=== PATIENT | female | born 1940 | race Caucasian/White ===

== ENCOUNTER → 2016-10-11 | Outpatient (CLI) | payer OTHER | END | disposition home or self-care (01) | LOC: CFH 08:26 | PROVIDERS: ATTEND Internal Medicine Cardiovascular Disease | DX: R94.31 Abnormal electrocardiogram [ECG] [EKG] (principal); I10 Essential (primary) hypertension | CPT/HCPCS: 78452; 93017; A9502 ==

== ENCOUNTER → 2016-10-12 | Outpatient (CLI) | payer OTHER | END | disposition home or self-care (01) | LOC: CVU 08:23 | PROVIDERS: ATTEND Internal Medicine Cardiovascular Disease | DX: I51.7 Cardiomegaly (principal); I08.3 Combined rheumatic disorders of mitral, aortic and tricuspid valves; I37.1 Nonrheumatic pulmonary valve insufficiency; I65.23 Occlusion and stenosis of bilateral carotid arteries; I10 Essential (primary) hypertension | CPT/HCPCS: 93306; 93880 ==

== ENCOUNTER 2017-04-07 09:51 | Emergency (ER) | payer OTHER ==
[~2017-04-07] VITALS: Ht 160 cm; Wt 68.5 kg
[2017-04-07] MEDS ORDERED: SODIUM CHLORIDE 0.9% 1,000 ML IV ONE (10:20)
[2017-04-07] MEDS ORDERED: ASPIRIN 81 MG TABLET CHEW PO ONE (10:30)
[2017-04-07] MEDS ORDERED: SODIUM CHLORIDE 0.9% 1,000ML IVBOLUS ONE (10:30)
[2017-04-07] MEDS ORDERED: SODIUM CHLORIDE FLUSH 10ML SYR IVF ONE (10:30)
[2017-04-07 10:46] LABS: HEMOGLOBIN 13.6 g/dL (11.7-16.4); WHITE BLOOD COUNT 8.3 x10^3/uL (3.4-10)
[2017-04-07] MEDS ORDERED: ASPIRIN 81 MG TABLET CHEW ONE (11:07)
[2017-04-07 11:35] LABS: BLOOD UREA NITROGEN 20 mg/dL (7-18)
[2017-04-07 11:36] LABS: IS PT STATUS REG ER OR PRE ER? YES
[2017-04-07] MEDS ORDERED: LISI40TA PO (11:45)
[2017-04-07] MEDS ORDERED: HYDR25TA6 PO (11:45)
[2017-04-07] MEDS ORDERED: ASPI-496 PO (11:45)
[2017-04-07] MEDS ORDERED: ATOR20TA9 PO (11:45)
[2017-04-07] MEDS ORDERED: LEVO75TA5 PO (11:45)
[2017-04-07] MEDS ORDERED: AMLO10TA2 PO (11:45)
[2017-04-07 13:10] VITALS: BP 116/60
[2017-04-07] MEDS ORDERED: APIXABAN 5 MG TABLET PO ONE (13:30)
== END 2017-04-07 14:01 | disposition home or self-care (01) ==
LOC: ED 11:25
DX: I48.0 Paroxysmal atrial fibrillation (principal); I10 Essential (primary) hypertension; E03.9 Hypothyroidism, unspecified
CPT/HCPCS: 36415; 71010; 80048; 82040; 83735; 83880; 84484; 85025; 85379; 85610; 85730; 93005; 96360; 99285; J7030

== ENCOUNTER 2018-07-30 12:02 | Outpatient (CLI) | payer MEDICARE, OTHER ==
[~2018-07-30 12:02] MED LIST: AMLO10TA8 PO; ASPI-496 PO; ATOR20TA37 PO; HYDR25TA6 PO; LEVO75TA5 PO; LISI40TA PO
== END 2018-07-30 23:59 | disposition home or self-care (01) ==
LOC: CVU 12:02
PROVIDERS: ATTEND Internal Medicine Cardiovascular Disease
DX: I08.3 Combined rheumatic disorders of mitral, aortic and tricuspid valves (principal); I65.23 Occlusion and stenosis of bilateral carotid arteries
CPT/HCPCS: 93306; 93880

== ENCOUNTER 2019-09-21 20:34 | Observation (INO) | payer MEDICARE ==
[~2019-09-21] VITALS: Ht 161.3 cm; Wt 68.1 kg
[~2019-09-21 20:34] MED LIST changes: +APIX5TAB PO; +FURO40TA6 PO; +METO-93 PO; +METO25TA35 PO; +POTA20TA6 PO
--- NOTE | 2019-09-21 21:38 | NUR ---
PT CAME IN CO OF SOB WHEN SHE WAS LAYING DOWN TO GO TO SLEEP. "I FELT LIKE I COULDNT BREATH AT ALL". PT IS CURRENTLY 97% ON RM AIR. PT ALSO STATED THAT SHE WAS TREATED A WEEK AGO FOR LOW POTASSIUM. IS BEDSIDE. PT IS HOOKED UP TO FULL STACK [employer]. BLANKET PROVIDED.
[2019-09-21 22:07] LABS: BASOPHILS # (AUTO) 0.04 x10^3/uL (0-0.1); BASOPHILS % (AUTO) 1 % (0-1); EOSINOPHILS # (AUTO) 0.16 x10^3/uL (0-0.4); EOSINOPHILS % (AUTO) 2 % (1-7); LYMPHOCYTES # (AUTO) 2.27 x10^3/uL (1-3.4); LYMPHOCYTES % (AUTO) 35 % (22-44); MD NO; MEAN CORPUSCULAR HEMOGLOBIN 28.7 pg (27.0-34.8); MEAN CORPUSCULAR HGB CONC 33.4 g/dL (32.4-35.8); MEAN PLATELET VOLUME 9.6 fL (7.4-10.4); MONOCYTES # (AUTO) 0.74 x10^3/uL (0.2-0.8); MONOCYTES % (AUTO) 11 % (2-9); NEUTROPHILS # (AUTO) 3.32 x10^3/uL (1.8-6.8); NEUTROPHILS % (AUTO) 51 % (42-75); PLATELET COUNT 334 x10^3/uL (130-400); RED CELL DISTRIBUTION WIDTH 14.1 % (9.6-15.2)
[2019-09-21 22:19] LABS: ALANINE AMINOTRANSFERASE 22 U/L (12-78); ALBUMIN 3.6 g/dL (3.4-5.0); ANION GAP 8 mmol/L (5-15); CALCIUM 8.6 mg/dL (8.5-10.1); CHLORIDE 108 mmol/L (98-107); CREATININE 0.85 mg/dL (0.55-1.02)
[2019-09-21 22:23] LABS: ALKALINE PHOSPHATASE 69 U/L (45-117); BILIRUBIN,TOTAL 0.3 mg/dL (0.2-1.0); TROPONIN I < 0.015 ng/mL (0.000-0.045)
--- NOTE | 2019-09-21 23:11 | NUR ---
PT IS RESTING IN [facility]. PT TO BE ADMITTED. VSS. NAD. NO NEEDS AT THIS TIME
[2019-09-22 00:26] VITALS: BP 209/74
[2019-09-22] MEDS ORDERED: NITROGLYCERIN 0.4 MG BOTTLE (25 TABS) SL PRN (00:30)
[2019-09-22] MEDS ORDERED: DOCUSATE 100 MG CAPSULE PO PRN (00:30)
[2019-09-22] MEDS ORDERED: TEMAZEPAM 15 MG CAPSULE PO PRN (00:30)
[2019-09-22] MEDS ORDERED: hydrALAzine 20 MG/ML, 1ML IVPush PRN (00:30)
[2019-09-22] MEDS ORDERED: LIDODERM 5% PATCH TD PRN (00:30)
[2019-09-22 04:28] LABS: TROPONIN I < 0.015 ng/mL (0.000-0.045)
[2019-09-22] MEDS ORDERED: OMNIPAQUE 350 MG/ML, 100ML BOTTLE ONE (05:51)
[2019-09-22 06:48] VITALS: BP 125/60
[2019-09-22] MEDS ORDERED: REGADENOSON 0.4 MG/5 ML SYRINGE ONE (08:42)
[2019-09-22] MEDS ORDERED: APIXABAN 5 MG TABLET PO SCH (09:00)
[2019-09-22] MEDS: FUROSEMIDE 40 MG TABLET PO SCH (10:23)
[2019-09-22] MEDS: POTASSIUM CHLORIDE 20 MEQ TAB.ER.PRT PO SCH (10:23)
[2019-09-22] MEDS: LISINOPRIL 40 MG TABLET PO SCH (10:23)
[2019-09-22] MEDS: LEVOTHYROXINE 75 MCG TABLET PO SCH (10:24)
[2019-09-22 10:45] LABS: TROPONIN I < 0.015 ng/mL (0.000-0.045)
[2019-09-22 12:38] VITALS: BP 128/70
[2019-09-22] MEDS: METOPROLOL SUCCINATE 25 MG TAB.ER.24H PO SCH (14:05)
[2019-09-22 21:00] VITALS: BP 134/68
[2019-09-22] MEDS ORDERED: ATORVASTATIN 20 MG TABLET PO SCH (21:00)
[2019-09-22] MEDS: ATORVASTATIN 40 MG TABLET PO SCH (21:06)
[2019-09-23 05:09] VITALS: BP 143/75
[2019-09-23] MEDS: METOPROLOL SUCCINATE 25 MG TAB.ER.24H PO SCH (05:14)
[2019-09-23] MEDS: ASPIRIN 81 MG TABLET EC PO SCH (05:14)
[2019-09-23 06:19] LABS: BASOPHILS # (AUTO) 0.03 x10^3/uL (0-0.1); BASOPHILS % (AUTO) 1 % (0-1); CHLORIDE 107 mmol/L (98-107); EOSINOPHILS # (AUTO) 0.13 x10^3/uL (0-0.4); EOSINOPHILS % (AUTO) 2 % (1-7); LYMPHOCYTES # (AUTO) 2.45 x10^3/uL (1-3.4); LYMPHOCYTES % (AUTO) 35 % (22-44); MD NO; MEAN CORPUSCULAR VOLUME 85.4 fL (80-100); MEAN PLATELET VOLUME 9.7 fL (7.4-10.4); MONOCYTES # (AUTO) 0.79 x10^3/uL (0.2-0.8); MONOCYTES % (AUTO) 11 % (2-9); NEUTROPHILS # (AUTO) 3.58 x10^3/uL (1.8-6.8); NEUTROPHILS % (AUTO) 51 % (42-75); PLATELET COUNT 354 x10^3/uL (130-400); RED BLOOD COUNT 4.71 x10^6/uL (3.82-5.3); RED CELL DISTRIBUTION WIDTH 14.3 % (9.6-15.2)
[2019-09-23 06:34] LABS: ANION GAP 9 mmol/L (5-15); CALCIUM 8.8 mg/dL (8.5-10.1); CHOL/HDL RATIO 2.3; CHOLESTEROL, TOTAL 113 mg/dL (140-239); CREATININE 0.86 mg/dL (0.55-1.02); HDL CHOL % 43 % (28-40); HDL CHOLESTEROL (DIRECT) 49 mg/dL (40-60); LDL CHOLESTEROL,CALCULATED 42 mg/dL (54-169); LDL/HDL RATIO 0.9 (0.5-3.0); TRIGLYCERIDES 110 mg/dL (50-200); VLDL CHOLESTEROL 22 mg/dL (0-25)
[2019-09-23 07:16] VITALS: BP 111/66
[2019-09-23] MEDS: LEVOTHYROXINE 75 MCG TABLET PO SCH (07:41)
[2019-09-23] MEDS: FUROSEMIDE 40 MG TABLET PO SCH (07:41)
[2019-09-23] MEDS: POTASSIUM CHLORIDE 20 MEQ TAB.ER.PRT PO SCH (07:41)
[2019-09-23] MEDS: LISINOPRIL 40 MG TABLET PO SCH (07:41)
[2019-09-23] MEDS ORDERED: SODIUM CHLORIDE 0.9% 1,000 ML IV SCH (10:00)
[2019-09-23 13:11] VITALS: BP 122/60
[2019-09-23 19:02] VITALS: BP 114/62
[2019-09-23] MEDS: ATORVASTATIN 40 MG TABLET PO SCH (20:04)
[2019-09-24 01:55] VITALS: BP 120/68
[2019-09-24 05:49] LABS: BASOPHILS # (AUTO) 0.06 x10^3/uL (0-0.1); BASOPHILS % (AUTO) 1 % (0-1); EOSINOPHILS # (AUTO) 0.16 x10^3/uL (0-0.4); EOSINOPHILS % (AUTO) 2 % (1-7); LYMPHOCYTES # (AUTO) 2.36 x10^3/uL (1-3.4); LYMPHOCYTES % (AUTO) 32 % (22-44); MD NO; MEAN CORPUSCULAR HEMOGLOBIN 28.8 pg (27.0-34.8); MEAN CORPUSCULAR HGB CONC 33.4 g/dL (32.4-35.8); MEAN PLATELET VOLUME 9.3 fL (7.4-10.4); MONOCYTES # (AUTO) 0.73 x10^3/uL (0.2-0.8); MONOCYTES % (AUTO) 10 % (2-9); NEUTROPHILS # (AUTO) 4.18 x10^3/uL (1.8-6.8); NEUTROPHILS % (AUTO) 56 % (42-75); PLATELET COUNT 323 x10^3/uL (130-400); RED BLOOD COUNT 4.63 x10^6/uL (3.82-5.3); RED CELL DISTRIBUTION WIDTH 14.3 % (9.6-15.2)
[2019-09-24 05:56] LABS: ANION GAP 9 mmol/L (5-15); CALCIUM 8.7 mg/dL (8.5-10.1); CHLORIDE 107 mmol/L (98-107); CREATININE 0.84 mg/dL (0.55-1.02)
[2019-09-24] MEDS: ASPIRIN 81 MG TABLET EC PO SCH (06:03)
[2019-09-24] MEDS: METOPROLOL SUCCINATE 25 MG TAB.ER.24H PO SCH (06:03)
[2019-09-24] MEDS: SODIUM CHLORIDE 0.9% 1,000 ML IV SCH ×4 (07:00→20:11)
[2019-09-24 07:20] VITALS: BP 119/64
[2019-09-24] MEDS ORDERED: MIDAZOLAM 1 MG/ML, 5ML ONE (07:49)
[2019-09-24] MEDS ORDERED: FENTANYL PF 100 MCG/2ML ONE (07:49)
[2019-09-24] MEDS ORDERED: VERAPAMIL 2.5 MG/ML, 2ML ONE (07:50)
[2019-09-24] MEDS ORDERED: LIDOCAINE-MPF 1%, 5ML ONE (07:50)
[2019-09-24] MEDS ORDERED: HEPARIN 1,000 UNITS/ML, 10ML ONE (07:50)
[2019-09-24] MEDS ORDERED: BIVALIRUDIN 250 MG ONE (07:50)
[2019-09-24] MEDS ORDERED: NITROGLYCERIN 5 MG/ML, 10ML ONE (07:54)
[2019-09-24] MEDS ORDERED: CLOPIDOGREL 300 MG TABLET ONE (09:18)
[2019-09-24] MEDS ORDERED: BIVALIRUDIN 250 MG in SODIUM CHLORIDE 0.9% 50 ML IV SCH (10:00)
[2019-09-24] MEDS: POTASSIUM CHLORIDE 20 MEQ TAB.ER.PRT PO SCH (10:34)
[2019-09-24] MEDS: FUROSEMIDE 40 MG TABLET PO SCH (10:34)
[2019-09-24] MEDS: LEVOTHYROXINE 75 MCG TABLET PO SCH (10:35)
[2019-09-24] MEDS: LISINOPRIL 40 MG TABLET PO SCH (10:35)
[2019-09-24] MEDS: ACETAMINOPHEN 325 MG TABLET PO PRN ×2 (11:03→17:02)
[2019-09-24 12:27] VITALS: BP 124/67
[2019-09-24 15:57] LABS: TROPONIN I 0.116 ng/mL (0.000-0.045)
[2019-09-24 19:51] VITALS: BP 139/65
[2019-09-24] MEDS: ATORVASTATIN 40 MG TABLET PO SCH (20:41)
[2019-09-25] MEDS: SODIUM CHLORIDE 0.9% 1,000 ML IV SCH ×3 (00:05→11:00)
[2019-09-25 00:32] VITALS: BP 134/66
[2019-09-25 05:24] LABS: ANION GAP 6 mmol/L (5-15); CALCIUM 8.6 mg/dL (8.5-10.1); CHLORIDE 110 mmol/L (98-107); CREATININE 0.76 mg/dL (0.55-1.02)
[2019-09-25] MEDS: ASPIRIN 81 MG TABLET EC PO SCH (06:06)
[2019-09-25] MEDS: METOPROLOL SUCCINATE 25 MG TAB.ER.24H PO SCH (06:06)
[2019-09-25 08:17] VITALS: BP 116/66
[2019-09-25] MEDS: LISINOPRIL 40 MG TABLET PO SCH (08:19)
[2019-09-25] MEDS: FUROSEMIDE 40 MG TABLET PO SCH (08:19)
[2019-09-25] MEDS: POTASSIUM CHLORIDE 20 MEQ TAB.ER.PRT PO SCH (08:19)
[2019-09-25] MEDS: LEVOTHYROXINE 75 MCG TABLET PO SCH (08:19)
[2019-09-25] MEDS ORDERED: CLOP75TA PO (10:22)
[2019-09-25] MEDS ORDERED: CLOPIDOGREL 75 MG TABLET PO SCH (11:00)
== END 2019-09-25 12:17 | disposition home or self-care (01) ==
LOC: ED 23:15 → 5SO 09-22 00:24 → ED 09-22 00:24 → INTOOBSV 09-22 00:46 → 5SO 09-22 00:46 → INTOOBSV 09-24 15:17 → OBSVTOIN 09-24 15:17 → DCLOUNGE 09-25 12:07
PROVIDERS: ADMIT Family Medicine; ATTEND Family Medicine
DX: I21.4 Non-ST elevation (NSTEMI) myocardial infarction (principal); I48.0 Paroxysmal atrial fibrillation; R06.00 Dyspnea, unspecified; D68.69 Other thrombophilia; I11.0 Hypertensive heart disease with heart failure; I50.33 Acute on chronic diastolic (congestive) heart failure; E78.5 Hyperlipidemia, unspecified; I08.3 Combined rheumatic disorders of mitral, aortic and tricuspid valves; I27.20 Pulmonary hypertension, unspecified; R94.31 Abnormal electrocardiogram [ECG] [EKG]; E89.0 Postprocedural hypothyroidism; I25.10 Atherosclerotic heart disease of native coronary artery without angina pectoris; Z87.891 Personal history of nicotine dependence; Z88.0 Allergy status to penicillin; Z79.899 Other long term (current) drug therapy; Z79.01 Long term (current) use of anticoagulants; Z87.442 Personal history of urinary calculi
CPT/HCPCS: 36415; 71045; 71275; 78452; 80048; 80053; 80061; 83735; 83880; 84100; 84484; 85025; 85379; 93005; 93017; 93458; 96374; 99156; 99157; 99285; A9502; C1725; C1769; C1874; C1887; C1894; C9600; G0378; J0360; J0583; J1644; J2250; J2785; J3010; J7030; Q9967

== ENCOUNTER 2019-09-25 20:49 | Inpatient (IN) | payer MEDICARE ==
[~2019-09-25] VITALS: Ht 160 cm; Wt 63.5 kg
[~2019-09-25 20:49] MED LIST changes: +CLOP75TA PO
[2019-09-25] MEDS ORDERED: DILTIAZEM 125 MG in SODIUM CHLORIDE 0.9% 100 ML IV SCH ×2 (21:20→23:00)
[2019-09-25] MEDS ORDERED: SODIUM CHLORIDE FLUSH 10ML SYR IVF ONE (21:30)
[2019-09-25] MEDS ORDERED: DILTIAZEM 5 MG/ML, 5ML IV ONE (21:30)
[2019-09-25] MEDS ORDERED: DILTIAZEM 5 MG/ML, 5ML ONE (21:35)
--- NOTE | 2019-09-25 21:43 | NUR ---
CHAYO RN: PT PRESENTS WITH C/O INCREASED SOB. PT WAS D/C EARLIER TODAY S/P CARDIAC STENTS X3 PLACED YESTERDAY. PT WITH HX OF AFIB. PT RAPID AFIB 150S ON MONITOR. MILDLY RAPID RESP--ABLE TO SPEAK SENTENCES WITH NO DIFFICULTY. IV ACCESS OBTAINED AND PT MEDICATED PER SEP WITH CARDIZEM. AWAITING DRIP FROM PHARMACY. PT AND SPOUSE AWARE OF POC. CALL LIGHT IN REACH.
[2019-09-25 21:48] LABS: BASOPHILS # (AUTO) 0.05 x10^3/uL (0-0.1); BASOPHILS % (AUTO) 1 % (0-1); EOSINOPHILS # (AUTO) 0.08 x10^3/uL (0-0.4); EOSINOPHILS % (AUTO) 1 % (1-7); LYMPHOCYTES # (AUTO) 2.24 x10^3/uL (1-3.4); LYMPHOCYTES % (AUTO) 20 % (22-44); MD NO; MEAN CORPUSCULAR HEMOGLOBIN 28.9 pg (27.0-34.8); MEAN CORPUSCULAR HGB CONC 33.7 g/dL (32.4-35.8); MEAN CORPUSCULAR VOLUME 85.8 fL (80-100); MEAN PLATELET VOLUME 9.4 fL (7.4-10.4); MONOCYTES # (AUTO) 0.95 x10^3/uL (0.2-0.8); MONOCYTES % (AUTO) 9 % (2-9); NEUTROPHILS # (AUTO) 7.65 x10^3/uL (1.8-6.8); NEUTROPHILS % (AUTO) 70 % (42-75); PLATELET COUNT 369 x10^3/uL (130-400); RED BLOOD COUNT 4.83 x10^6/uL (3.82-5.3)
[2019-09-25 21:56] LABS: ALANINE AMINOTRANSFERASE 37 U/L (12-78); ALBUMIN 3.6 g/dL (3.4-5.0); ANION GAP 11 mmol/L (5-15); CALCIUM 8.9 mg/dL (8.5-10.1); CHLORIDE 107 mmol/L (98-107); CREATININE 1.23 mg/dL (0.55-1.02)
[2019-09-25 22:01] LABS: ALKALINE PHOSPHATASE 104 U/L (45-117); BILIRUBIN,TOTAL 0.5 mg/dL (0.2-1.0); TOTAL PROTEIN 8.2 g/dL (6.4-8.2)
[2019-09-25 22:03] LABS: TROPONIN I 0.221 ng/mL (0.000-0.045)
--- NOTE | 2019-09-25 22:05 | NUR ---
REPORT TO PRIMARY RN, CHARISSE.
[2019-09-25] MEDS ORDERED: ASPIRIN 325 MG TABLET PO ONE (22:30)
--- NOTE | 2019-09-25 22:37 | NUR ---
ADMITTING PROVIDER IN ROOM.
[2019-09-25] MEDS ORDERED: morphine SULFATE 10 MG/ML, 1ML IVPush PRN (23:00)
[2019-09-25] MEDS ORDERED: ACETAMINOPHEN 325 MG TABLET PO PRN (23:00)
[2019-09-25] MEDS ORDERED: ONDANSETRON 2MG/ML, 2ML IVPush PRN (23:00)
[2019-09-25 23:10] VITALS: BP 115/73
--- NOTE | 2019-09-25 23:23 | NUR ---
REPORT GIVEN TO DEDE MUIR.
[2019-09-26 01:32] LABS: TROPONIN I 0.222 ng/mL (0.000-0.045)
[2019-09-26 02:06] VITALS: BP 95/56
[2019-09-26 05:38] LABS: BASOPHILS # (AUTO) 0.03 x10^3/uL (0-0.1); BASOPHILS % (AUTO) 0 % (0-1); EOSINOPHILS # (AUTO) 0.14 x10^3/uL (0-0.4); EOSINOPHILS % (AUTO) 2 % (1-7); LYMPHOCYTES # (AUTO) 2.35 x10^3/uL (1-3.4); LYMPHOCYTES % (AUTO) 31 % (22-44); MD NO; MEAN CORPUSCULAR HEMOGLOBIN 28.8 pg (27.0-34.8); MEAN CORPUSCULAR HGB CONC 33.2 g/dL (32.4-35.8); MEAN CORPUSCULAR VOLUME 86.6 fL (80-100); MONOCYTES # (AUTO) 0.69 x10^3/uL (0.2-0.8); MONOCYTES % (AUTO) 9 % (2-9); NEUTROPHILS # (AUTO) 4.28 x10^3/uL (1.8-6.8); NEUTROPHILS % (AUTO) 57 % (42-75); PLATELET COUNT 311 x10^3/uL (130-400); RED BLOOD COUNT 4.77 x10^6/uL (3.82-5.3); RED CELL DISTRIBUTION WIDTH 13.9 % (9.6-15.2)
[2019-09-26 05:40] LABS: ANION GAP 8 mmol/L (5-15); CALCIUM 8.4 mg/dL (8.5-10.1); CHLORIDE 109 mmol/L (98-107)
[2019-09-26 05:47] LABS: CREATININE 1.03 mg/dL (0.55-1.02); TROPONIN I 0.241 ng/mL (0.000-0.045)
[2019-09-26] MEDS: METOPROLOL SUCCINATE 50 MG TAB.ER.24H PO SCH (06:43)
[2019-09-26 08:00] VITALS: BP 107/51
[2019-09-26] MEDS: POTASSIUM CHLORIDE 20 MEQ TAB.ER.PRT PO SCH (09:24)
[2019-09-26] MEDS: CLOPIDOGREL 75 MG TABLET PO SCH (09:24)
[2019-09-26] MEDS: LEVOTHYROXINE 75 MCG TABLET PO SCH (09:24)
[2019-09-26] MEDS: FUROSEMIDE 40 MG TABLET PO SCH (09:24)
[2019-09-26] MEDS: APIXABAN 5 MG TABLET PO SCH ×2 (09:25→21:55)
[2019-09-26] MEDS: LISINOPRIL 40 MG TABLET PO SCH (09:25)
[2019-09-26 14:45] VITALS: BP 119/56
[2019-09-26] MEDS ORDERED: ATORVASTATIN 20 MG TABLET PO SCH (21:00)
[2019-09-26 21:55] VITALS: BP 129/63
[2019-09-27 01:17] VITALS: BP 100/61
[2019-09-27] MEDS: METOPROLOL SUCCINATE 50 MG TAB.ER.24H PO SCH (05:25)
[2019-09-27 06:07] LABS: CHLORIDE 108 mmol/L (98-107)
[2019-09-27 06:14] LABS: ANION GAP 7 mmol/L (5-15); CALCIUM 8.9 mg/dL (8.5-10.1); CREATININE 0.99 mg/dL (0.55-1.02)
[2019-09-27 06:59] VITALS: BP 135/63
[2019-09-27] MEDS: CLOPIDOGREL 75 MG TABLET PO SCH (07:53)
[2019-09-27] MEDS: APIXABAN 5 MG TABLET PO SCH (07:53)
[2019-09-27] MEDS: POTASSIUM CHLORIDE 20 MEQ TAB.ER.PRT PO SCH (07:53)
[2019-09-27] MEDS: LISINOPRIL 40 MG TABLET PO SCH (07:53)
[2019-09-27] MEDS: FUROSEMIDE 40 MG TABLET PO SCH (07:54)
[2019-09-27] MEDS: LEVOTHYROXINE 75 MCG TABLET PO SCH (07:54)
== END 2019-09-27 08:06 | disposition home or self-care (01) | DRG 281 ==
LOC: ED 22:26 → 5SO 23:51
PROVIDERS: ATTEND Internal Medicine
DX: I48.91 Unspecified atrial fibrillation (principal); I21.4 Non-ST elevation (NSTEMI) myocardial infarction; I50.32 Chronic diastolic (congestive) heart failure; I35.0 Nonrheumatic aortic (valve) stenosis; E03.9 Hypothyroidism, unspecified; E78.5 Hyperlipidemia, unspecified; I11.0 Hypertensive heart disease with heart failure; I27.20 Pulmonary hypertension, unspecified; Z79.01 Long term (current) use of anticoagulants; Z95.5 Presence of coronary angioplasty implant and graft; Z72.89 Other problems related to lifestyle; Z88.0 Allergy status to penicillin
CPT/HCPCS: 36415; 71045; 71275; 78452; 80048; 80053; 80061; 83735; 83880; 84100; 84484; 85025; 85379; 93005; 93017; 93458; 96374; 99156; 99157; C1769; C1894; C9600; G0378; J0583; J1644; J2250; J2785; J3010; Q9967; A9502; C1725; C1874; C1887; J0360; J7030

== ENCOUNTER 2019-10-31 16:37 | Observation (INO) | payer MEDICARE ==
[~2019-10-31] VITALS: Ht 160 cm; Wt 66.0 kg
--- NOTE | 2019-10-31 16:58 | NUR ---
PT CAME IN CO OF "MY AFIB IS ACTING UP". PT SAYS SHE DOES NOT KNOW WHEN IT STARTED BUT WAS FEELING WEAK AROUND 1600 HX OF AFIB. TAKES NA PT IS CONNECTED TO LONE LEAD [facility] [facility]ULSE [facility]. IS BEDSIDE. BLANKET PROVIDED
[2019-10-31] MEDS ORDERED: PROPOFOL 10 MG/ML, 20ML IVPush ONE (17:30)
[2019-10-31] MEDS ORDERED: SODIUM CHLORIDE FLUSH 10ML SYR IVF ONE (17:30)
[2019-10-31] MEDS ORDERED: PROPOFOL 10 MG/ML, 20ML ONE (17:37)
--- NOTE | 2019-10-31 17:48 | NUR ---
PT SET UP FOR ELECTROCARDIO VERSION. CONSENT HAS BEEN SIGNED. PT EDUCATED ON PROCEDURE. AWAITING LAB RESULTS BEFORE PROCEDURE BEGINS
[2019-10-31 17:50] LABS: ALBUMIN 3.8 g/dL (3.4-5.0); ANION GAP 5 mmol/L (5-15); CHLORIDE 110 mmol/L (98-107); CREATININE 1.05 mg/dL (0.55-1.02)
[2019-10-31 18:29] LABS: BASOPHILS # (AUTO) 0.03 x10^3/uL (0-0.1); BASOPHILS % (AUTO) 1 % (0-1); EOSINOPHILS % (AUTO) 2 % (1-7); LYMPHOCYTES # (AUTO) 1.74 x10^3/uL (1-3.4); LYMPHOCYTES % (AUTO) 31 % (22-44); MD NO; MEAN CORPUSCULAR HEMOGLOBIN 29.2 pg (27.0-34.8); MEAN CORPUSCULAR HGB CONC 34.1 g/dL (32.4-35.8); MEAN CORPUSCULAR VOLUME 85.7 fL (80-100); MEAN PLATELET VOLUME 8.6 fL (7.4-10.4); MONOCYTES # (AUTO) 0.92 x10^3/uL (0.2-0.8); MONOCYTES % (AUTO) 16 % (2-9); NEUTROPHILS # (AUTO) 2.91 x10^3/uL (1.8-6.8); NEUTROPHILS % (AUTO) 51 % (42-75); PLATELET COUNT 322 x10^3/uL (130-400); RED BLOOD COUNT 4.36 x10^6/uL (3.82-5.3)
[2019-10-31] MEDS ORDERED: DILTIAZEM 5 MG/ML, 5ML ONE ×2 (18:46→19:36)
--- NOTE | 2019-10-31 18:59 | NUR ---
CAHYO RN: ADMITTING MD MEYERS AT BEDSIDE FOR EVAL. PER DR. MEYERS - PT IS TO REICEVE 10 MG BOLUSES OF CARDIZEM 30 MINUTES APART X 3 PRIOR TO STARTING CARDIZEM DRIP. PT CURRENTLY RESTING ON GURNEY. NAD NOTED. SKIN PWD. RESP EVEN AND UNLABORED. PT ON CONT BP, CARDIAC AND O2 MONITORS. CALL LIGHT WITHIN REACH. WILL CONT TO [facility] PT.
[2019-10-31] MEDS ORDERED: DOCUSATE 100 MG CAPSULE PO PRN (19:00)
[2019-10-31] MEDS ORDERED: DILTIAZEM 5 MG/ML, 5ML IVPush PRN (19:00)
[2019-10-31] MEDS ORDERED: DILTIAZEM 5 MG/ML, 5ML IV ONE (19:00)
[2019-10-31] MEDS ORDERED: ACETAMINOPHEN 325 MG TABLET PO PRN (19:00)
[2019-10-31] MEDS ORDERED: ONDANSETRON ODT 4 MG PO PRN (19:00)
[2019-10-31] MEDS: DILTIAZEM 125 MG in SODIUM CHLORIDE 0.9% 100 ML IV SCH (20:03)
[2019-10-31 20:09] VITALS: BP 142/80
[2019-10-31] MEDS ORDERED: ATORVASTATIN 20 MG TABLET PO SCH (21:00)
[2019-10-31] MEDS: APIXABAN 5 MG TABLET PO SCH (21:00)
[2019-11-01 01:14] VITALS: BP 111/76
[2019-11-01 02:48] VITALS: BP 102/59
[2019-11-01] MEDS ORDERED: LEVOTHYROXINE 75 MCG TABLET PO SCH (06:00)
[2019-11-01] MEDS: DILTIAZEM 125 MG in SODIUM CHLORIDE 0.9% 100 ML IV SCH (06:37)
[2019-11-01 06:50] VITALS: BP 122/64
[2019-11-01] MEDS: APIXABAN 5 MG TABLET PO SCH (08:25)
[2019-11-01] MEDS ORDERED: METOPROLOL SUCCINATE 50 MG TAB.ER.24H PO SCH (08:30)
[2019-11-01] MEDS ORDERED: POTASSIUM CHLORIDE 20 MEQ TAB.ER.PRT PO SCH (09:00)
[2019-11-01] MEDS ORDERED: LISINOPRIL 40 MG TABLET PO SCH (09:00)
[2019-11-01] MEDS ORDERED: FUROSEMIDE 40 MG TABLET PO SCH (09:00)
[2019-11-01] MEDS ORDERED: CLOPIDOGREL 75 MG TABLET PO SCH (09:00)
[2019-11-01] MEDS ORDERED: METO-93 PO (12:08)
== END 2019-11-01 13:40 | disposition home or self-care (01) ==
LOC: ED 17:15 → INTOOBSV 18:39 → EDIP 18:39 → 5SO 19:56
PROVIDERS: ADMIT Family Medicine; ATTEND Family Medicine
DX: I48.0 Paroxysmal atrial fibrillation (principal); I11.0 Hypertensive heart disease with heart failure; I50.30 Unspecified diastolic (congestive) heart failure; I25.2 Old myocardial infarction; E78.5 Hyperlipidemia, unspecified; E03.9 Hypothyroidism, unspecified; I27.20 Pulmonary hypertension, unspecified; Z79.01 Long term (current) use of anticoagulants; Z87.891 Personal history of nicotine dependence; Z95.5 Presence of coronary angioplasty implant and graft
CPT/HCPCS: 36415; 71045; 80048; 82040; 83735; 85025; 93005; 96365; 96366; 96376; 99291; G0378